=== PATIENT | female | born 1990 | race Caucasian/White ===

== ENCOUNTER 2017-10-03 07:05 | Day surgery (SDC) | payer MEDICAID, OTHER ==
[~2017-10-03] VITALS: Ht 154.9 cm; Wt 40.8 kg
[~2017-10-03 07:05] MED LIST: PREN-234 PO
[2017-10-03] MEDS ORDERED: LIDOCAINE 2% 100 MG/5 ML SYR IVP ONE (09:03)
[2017-10-03] MEDS ORDERED: PROPOFOL 200 MG/20 ML VIAL IV ONE (09:03)
[2017-10-03] MEDS ORDERED: SEVOFLURANE 250 ML BTL INH ONE (09:03)
[2017-10-03] MEDS ORDERED: MIDAZOLAM 2 MG/2 ML VIAL ONE (09:09)
[2017-10-03] MEDS ORDERED: fentaNYL 0.05 MG/ML VIAL ONE (09:09)
[2017-10-03] MEDS ORDERED: BUPIVACAINE-MPF 0.25% 30 ML VIAL INJ ONE (09:20)
[2017-10-03] MEDS ORDERED: ONDANSETRON 4 MG/2 ML VIAL IVP PRN (09:40)
[2017-10-03] MEDS ORDERED: HYDROmorphone PFS 2 MG/ML SYR IVP PRN ×2 (09:40→10:10)
[2017-10-03] MEDS ORDERED: MORPHINE SULFATE 2 MG/ML SYR IVP PRN (10:10)
[2017-10-03] MEDS ORDERED: ONDANSETRON 4 MG/2 ML VIAL IV PRN (10:10)
[2017-10-03] MEDS ORDERED: MORPHINE SULFATE 4 MG/ML SYR IV PRN (10:10)
[2017-10-03] MEDS ORDERED: NACL 0.9% 1,000 ML IV SCH (10:10)
[2017-10-03] MEDS ORDERED: HYDROcodone/APAP 5/325 MG 1 TAB TAB PO PRN (10:10)
== END 2017-10-03 11:30 | disposition home or self-care (01) ==
LOC: MDS 07:05 → MMU 07:06 → MDS 11:30
PROVIDERS: ATTEND Surgery
DX: N63.41 Unspecified lump in right breast, subareolar (principal); Z98.890 Other specified postprocedural states; Z79.899 Other long term (current) drug therapy; Z83.3 Family history of diabetes mellitus; Z82.49 Family history of ischemic heart disease and other diseases of the circulatory system
CPT/HCPCS: 19120; 71045; 88305; J0690; J2001; J2250; J2704; J3010; J3490; J7060; J7120